=== PATIENT | male | born 1935 | race Caucasian/White ===

== ENCOUNTER 2023-12-26 12:00 | Inpatient (IN) ==
[2023-12-26] MEDS ORDERED: IOPAMIDOL 100 ML BOTTLE IV ONE (12:01)
[2023-12-26] MEDS: ASPIRIN 81 MG TAB.CHEW CHEWED ONE (12:36)
[2023-12-26] MEDS: NITROGLYCERIN 0.4 MG TAB.SUBL SL PRN (12:37)
[2023-12-26 12:52] LABS: Basophils # (Auto) 0.01 K/mcL (0.00-0.30); Basophils % (Auto) 0.1 % (0.0-2.0); Eosinophils # (Auto) 0.05 K/mcL (0.00-0.70); Eosinophils % (Auto) 0.4 % (0.0-7.0); Hematocrit 31.6 % (40.1-51.0); Hemoglobin 10.5 g/dL (13.7-17.5); Lymphocytes # (Auto) 0.45 K/mcL (1.50-4.80); Lymphocytes % (Auto) 3.2 % (15.5-49.0); Mean Cell Volume 95.5 fL (80.0-100.0); Mean Corpuscular HGB Conc 33.2 g/dL (31.0-36.0); Mean Platelet Volume 10.6 fL (8.8-12.5); Monocytes # (Auto) 0.77 K/mcL (0.10-0.90); Monocytes % (Auto) 5.5 % (1.0-12.0); Neutrophils % (Auto) 90.4 % (38.0-78.0); Platelet Count 162 K/mcL (140-440); RBC 3.31 M/mcL (4.63-6.08); Red Cell Distribution Width 14.2 % (11.5-14.5); WBC 13.9 K/mcL (4.5-11.0)
[2023-12-26 12:52] LABS: POC Calcium, Ionized 1.2 (1.16-1.32); POC Creatinine 1.5 (0.6-1.2); POC Potassium 5.5 (3.3-5.1)
[2023-12-26 13:07] LABS: ALT/SGPT 204 U/L (<40); AST/SGOT 656 U/L (<40); Albumin 4.2 gm/dL (3.2-5.2); Albumin/Globulin Ratio 1.9 (1.0-2.3); Alkaline Phosphatase 206 U/L (39-117); Bilirubin,Total 0.7 mg/dL (0.1-1.0); Blood Urea Nitrogen 28 mg/dL (8-23); Calcium 9.1 mg/dL (8.6-10.4); Carbon Dioxide 19 mmol/L (22-30); Chloride 108 mmol/L (96-108); Globulin 2.2 gm/dL (2.2-3.7); Glomerular Filtration Rate 41; Glucose 144 mg/dL (70-105)
[2023-12-26] MEDS: ONDANSETRON 4 MG/2 ML VIAL IV ONE ×2 (13:13→13:42)
[2023-12-26 13:17] LABS: INR 1.1 (0.9-1.1); Partial Thromboplastin Time 28.6 sec (20.0-37.0); Prothrombin Time 14.4 sec (11.9-14.5)
[2023-12-26 13:27] LABS: Myoglobin 64 ng/mL (28-72)
[2023-12-26 13:29] LABS: Creatine Kinase 47 U/L (24-195); Creatine Kinase MB 2.5 ng/mL (<6.7)
[2023-12-26] MEDS: fentaNYL 100 MCG/2 ML VIAL IV ONE (13:39)
[2023-12-26] MEDS: PHENobarb/HYOSCY/ATROPINE/SCOP 1 DOSE BOTTLE PO ONE (13:42)
[2023-12-26] MEDS: MAG HYDROX/AL HYDROX/SIMETH 30 ML ORAL.SUSP PO ONE (13:44)
[2023-12-26 14:01] LABS: Amylase 1286 U/L (28-100); Lactate Dehydrogenase 383 U/L (135-225); Triglycerides 51 mg/dL (<150)
[2023-12-26] MEDS: 0.9 % SODIUM CHLORIDE 1,000 ML IV SCH ×3 (14:24→19:38)
[2023-12-26] MEDS: fentaNYL 100 MCG/2 ML VIAL IV PRN (15:23)
[2023-12-26 17:46] LABS: C-Reactive Protein < 0.30 mg/dL (0.03-0.80)
[2023-12-26] MEDS ORDERED: MAGNESIUM SULFATE 2 GM/50 ML BAG IV PRN (19:11)
[2023-12-26] MEDS ORDERED: ONDANSETRON 4 MG/2 ML VIAL IV PRN (19:11)
[2023-12-26] MEDS ORDERED: POTASSIUM CHLORIDE 20 MEQ TABLET PO PRN ×2 (19:11)
[2023-12-26] MEDS ORDERED: SENNOSIDES 1 TABLET PO PRN (19:11)
[2023-12-26] MEDS ORDERED: IPRATROPIUM/ALBUTEROL 3 ML AMPUL.NEB NEB PRN (19:11)
[2023-12-26] MEDS ORDERED: POLYETHYLENE GLYCOL 3350 17 GM PACKET PO PRN (19:11)
[2023-12-26] MEDS ORDERED: POTASSIUM CHLORIDE 40 MEQ in DEXTROSE 5% IN WATER 500 ML IV PRN (19:11)
[2023-12-26] MEDS ORDERED: hydrALAZINE 20 MG/ML VIAL IV SCH (20:00)
[2023-12-26] MEDS: hydrALAZINE 20 MG/ML VIAL IV PRN (20:04)
[2023-12-26] MEDS: hydrALAZINE 20 MG/ML VIAL ONE (20:04)
[2023-12-26] MEDS ORDERED: ENALAPRILAT 1.25 MG/ML VIAL IV PRN (20:19)
[2023-12-26] MEDS ORDERED: MECLIZINE 25 MG TABLET PO PRN (20:19)
[2023-12-26] MEDS ORDERED: hydrALAZINE 20 MG/ML VIAL IV PRN (20:19)
[2023-12-26] MEDS: TAMSULOSIN 0.4 MG CAPSULE PO SCH (20:24)
[2023-12-26] MEDS: amLODIPine 5 MG TABLET PO SCH (20:24)
[2023-12-26 21:10] LABS: Blood Urea Nitrogen 25 mg/dL (8-23); Calcium 8.8 mg/dL (8.6-10.4); Carbon Dioxide 20 mmol/L (22-30); Chloride 109 mmol/L (96-108); Glomerular Filtration Rate 49; Glucose 100 mg/dL (70-105)
[2023-12-27] MEDS: fentaNYL 100 MCG/2 ML VIAL IV PRN (02:42)
[2023-12-27 06:14] LABS: Basophils # (Auto) 0.02 K/mcL (0.00-0.30); Basophils % (Auto) 0.2 % (0.0-2.0); Eosinophils # (Auto) 0.16 K/mcL (0.00-0.70); Eosinophils % (Auto) 1.6 % (0.0-7.0); Hematocrit 33.7 % (40.1-51.0); Lymphocytes # (Auto) 0.55 K/mcL (1.50-4.80); Lymphocytes % (Auto) 5.4 % (15.5-49.0); Mean Cell Volume 97.1 fL (80.0-100.0); Mean Corpuscular HGB Conc 32.6 g/dL (31.0-36.0); Mean Platelet Volume 10.4 fL (8.8-12.5); Monocytes # (Auto) 0.42 K/mcL (0.10-0.90); Monocytes % (Auto) 4.1 % (1.0-12.0); Neutrophils % (Auto) 88.2 % (38.0-78.0); Platelet Count 143 K/mcL (140-440); RBC 3.47 M/mcL (4.63-6.08); Red Cell Distribution Width 14.1 % (11.5-14.5); WBC 10.2 K/mcL (4.5-11.0)
[2023-12-27 06:17] LABS: ALT/SGPT 380 U/L (<40); AST/SGOT 398 U/L (<40); Albumin/Globulin Ratio 1.8 (1.0-2.3); Alkaline Phosphatase 239 U/L (39-117); Bilirubin,Direct 0.2 mg/dL (<0.3); Bilirubin,Total 0.6 mg/dL (0.1-1.0); Blood Urea Nitrogen 20 mg/dL (8-23); C-Reactive Protein 0.65 mg/dL (0.03-0.80); Calcium 9.1 mg/dL (8.6-10.4); Carbon Dioxide 18 mmol/L (22-30); Chloride 109 mmol/L (96-108); Globulin 2.2 gm/dL (2.2-3.7); Glomerular Filtration Rate 60; Glucose 109 mg/dL (70-105); Lactate Dehydrogenase 296 U/L (135-225); Phosphorous 2.6 mg/dL (2.5-4.5); Triglycerides 44 mg/dL (<150); Uric Acid 6.9 mg/dL (2.5-8.0)
[2023-12-27] MEDS ORDERED: LISINOPRIL 20 MG TABLET PO SCH (09:00)
[2023-12-27] MEDS: DEXTROSE 50% 50 ML SYRINGE IV ONE (09:05)
[2023-12-27] MEDS: 0.9 % SODIUM CHLORIDE 10 ML SYRINGE IV SCH (09:06)
[2023-12-27] MEDS: SODIUM BICARBONATE VIAL 50 MEQ in DEXTROSE 5% IN WATER 100 ML IV ONE (09:06)
[2023-12-27] MEDS: INSULIN REGULAR, HUMAN 1 UNIT/0.01 ML UNIT IV ONE (09:06)
[2023-12-27] MEDS: ENOXAPARIN 40 MG/0.4 ML SYRINGE SQ SCH (09:06)
[2023-12-27] MEDS: SODIUM BICARBONATE 650 MG TABLET PO SCH (09:06)
[2023-12-27] MEDS: 0.9 % SODIUM CHLORIDE 500 ML IV ONE (09:06)
[2023-12-27] MEDS: SODIUM BICARBONATE 50 MEQ/50 ML VIAL IV ONE (09:37)
[2023-12-27] MEDS: DEXTROSE 50% 50 ML VIAL IV ONE (09:38)
[2023-12-27] MEDS: SODIUM POLYSTYRENE SULFONATE 15 GM/60 ML SUSPENSION PO ONE (13:20)
[2023-12-27] MEDS: ACETAMINOPHEN 325 MG TABLET PO PRN (15:43)
[2023-12-28 06:36] LABS: ALT/SGPT 182 U/L (<40); AST/SGOT 96 U/L (<40); Albumin 3.7 gm/dL (3.2-5.2); Albumin/Globulin Ratio 1.8 (1.0-2.3); Alkaline Phosphatase 186 U/L (39-117); Bilirubin,Direct < 0.2 mg/dL (0-0.3); Bilirubin,Total 0.6 mg/dL (0.1-1.0); Blood Urea Nitrogen 15 mg/dL (8-23); Calcium 8.3 mg/dL (8.6-10.4); Carbon Dioxide 19 mmol/L (22-30); Chloride 107 mmol/L (96-108); Globulin 2.1 gm/dL (2.2-3.7); Glomerular Filtration Rate 68; Glucose 96 mg/dL (70-105); Lactate Dehydrogenase 205 U/L (135-225); Phosphorous 2.4 mg/dL (2.5-4.5); Triglycerides 70 mg/dL (<150); Uric Acid 6.1 mg/dL (2.5-8.0)
[2023-12-28] MEDS: SODIUM BICARBONATE 650 MG TABLET PO SCH (09:34)
== END 2023-12-28 12:35 | disposition home or self-care (01) | DRG 439 ==
LOC: ED 12:00 → ICU 19:05
PROVIDERS: ADMIT Internal Medicine; ATTEND Internal Medicine